=== PATIENT | female | born 1995 | race Caucasian/White ===

== ENCOUNTER → 2016-11-20 | Outpatient (CLI) | payer OTHER ==
--- NOTE | 2016-11-20 16:02 | REP ---
ULTRASOUND LEFT BREAST: CLINICAL HISTORY: Palpable abnormality left breast outer aspect, family history maternal aunt and grandmother. Real-time sonographic evaluation of the left breast is performed laterally in the region of the reported palpable abnormality. There is dense fibroglandular tissue at this location. No cystic or solid mass is seen. IMPRESSION: ACR 2 benign. Dense fibroglandular tissue, lateral left breast in the region of the reported palpable abnormality. No mass seen. Clinical correlation and followup is recommended. Signed by Norm Reeves MD 11/20/2016 05:00 P
== END ==
LOC: M RAD 14:52
PROVIDERS: ATTEND Family Medicine
DX: N63 Unspecified lump in breast (principal)

== ENCOUNTER → 2017-05-02 | Outpatient (REF) | payer OTHER ==
[2017-05-02 21:17] LABS: MEAN CORPUSCULAR HEMOGLOBIN 25.8 pg (27.0-33.0); MEAN CORPUSCULAR HGB CONC 32.7 g/dl (32.0-36.5); MEAN CORPUSCULAR VOLUME 79.1 fl (80.0-96.0); RED CELL DISTRIBUTION WIDTH 14.8 % (11.5-14.5); WHITE BLOOD COUNT 6.4 K/mm3 (4.0-10.0)
[2017-05-02 21:35] LABS: ALBUMIN 3.9 GM/DL (3.2-5.2); ALBUMIN/GLOBULIN RATIO 0.98 (1.00-1.93); ALKALINE PHOSPHATASE 93 U/L (45-117); ALT/SGPT 25 U/L (12-78); ANION GAP 6 MEQ/L (8-16); AST/SGOT 35 U/L (15-37); BILIRUBIN,TOTAL 0.4 MG/DL (0.2-1.0); BLOOD UREA NITROGEN 13 MG/DL (7-18); CALCIUM LEVEL 8.9 MG/DL (8.5-10.1); CARBON DIOXIDE LEVEL 29 MEQ/L (21-32); CHLORIDE LEVEL 106 MEQ/L (98-107); CHOLESTEROL LEVEL 168 MG/DL (<200); CREATININE FOR GFR 0.87 MG/DL (0.55-1.02); GLOMERULAR FILTRATION RATE > 60.0 (>60); GLUCOSE, FASTING 98 MG/DL (70-105); POTASSIUM SERUM 4.2 MEQ/L (3.5-5.1); SODIUM LEVEL 141 MEQ/L (136-145); TOTAL PROTEIN 7.9 GM/DL (6.4-8.2); TRIGLYCERIDES LEVEL 189 MG/DL (<150)
[2017-05-02 22:08] LABS: EOSINOPHILS 3 % (0-5)
== END ==
LOC: M SFHCLERA 07:12
PROVIDERS: ATTEND Family Medicine
DX: E66.9 Obesity, unspecified (principal); Z68.38 Body mass index [BMI] 38.0-38.9, adult; R03.0 Elevated blood-pressure reading, without diagnosis of hypertension

== ENCOUNTER → 2017-06-09 | Outpatient (REF) | payer OTHER | LOC: M SFHCLERA 08:09 | PROVIDERS: ATTEND Family Medicine | DX: D64.9 Anemia, unspecified (principal); Z53.8 Procedure and treatment not carried out for other reasons ==

== ENCOUNTER → 2017-06-10 | Outpatient (CLI) | payer OTHER ==
--- NOTE | 2017-06-11 02:53 | REP ---
Clinical: Bilateral hip pain with limited range of motion. Technique: AP and frog lateral views of the right and left hip. Findings: The bilateral hips are symmetric and relatively normal in appearance. The joint spaces are normal. No overt arthritic degenerative changes are noted. No acute fracture or dislocation. Surrounding soft tissues are unremarkable. No periarticular calcifications. No obvious congenital abnormality. Impression: Normal, age-appropriate and symmetric bilateral hip radiographs. Signed by David Floyd MD 06/11/2017 02:44 A
== END ==
LOC: M LRY 15:07
PROVIDERS: ATTEND Family Medicine
DX: D64.9 Anemia, unspecified (principal)

== ENCOUNTER → 2017-06-10 | Outpatient (REF) | payer OTHER | LOC: M SFHCLERA 15:03 | PROVIDERS: ATTEND Family Medicine | DX: D64.9 Anemia, unspecified (principal) ==

== ENCOUNTER → 2017-07-30 | Outpatient (REF) | payer OTHER ==
[2017-07-30 17:32] LABS: PERCENT SATURATION 9.1 % (13.2-45.0)
[2017-07-30 17:36] LABS: FOLATE 4.7 NG/ML (>5.4)
== END ==
LOC: M SFHCLERA 10:42
PROVIDERS: ATTEND Family Medicine
DX: Z01.818 Encounter for other preprocedural examination (principal)

== ENCOUNTER → 2017-08-18 | Outpatient (REF) | payer OTHER | LOC: M SFHCLERA 13:30 | PROVIDERS: ATTEND Family Medicine | DX: R30.0 Dysuria (principal) ==

== ENCOUNTER → 2017-09-26 | Outpatient (CLI) | payer OTHER ==
[2017-09-26 21:39] LABS: BASO % 0.4 % (0.0-1.0); EOS % 0.6 % (0.0-3.0); HEMATOCRIT 41.2 % (36.0-47.0); HEMOGLOBIN 13.8 g/dl (12.0-16.0); IMMATURE GRANULOCYTE % 0.1 % (0-0); LYMPH # 2.4 10^3/uL (1.5-6.5); LYMPH % 34.5 % (24.0-44.0); MEAN CORPUSCULAR HEMOGLOBIN 27.5 pg (27.0-33.0); MEAN CORPUSCULAR HGB CONC 33.5 g/dl (32.0-36.5); MEAN CORPUSCULAR VOLUME 82.2 fl (80.0-96.0); MONO # 0.5 10^3/uL (0.0-0.8); MONO % 7.8 % (0.0-5.0); NEUTROPHILS # 3.9 10^3/uL (1.8-7.7); NEUTROPHILS % 56.6 % (36.0-66.0); PLATELET COUNT, AUTOMATED 213 10^3/uL (150-450); RED BLOOD COUNT 5.01 10^6/uL (4.00-5.40); RED CELL DISTRIBUTION WIDTH 14.6 % (11.5-14.5)
[2017-09-26 21:42] LABS: HEMATOCRIT 41.2 % (36.0-47.0)
[2017-09-26 21:46] LABS: ALBUMIN 3.7 GM/DL (3.2-5.2); ALBUMIN/GLOBULIN RATIO 0.95 (1.00-1.93); ALKALINE PHOSPHATASE 98 U/L (45-117); ALT/SGPT 26 U/L (12-78); ANION GAP 12 MEQ/L (8-16); AST/SGOT 34 U/L (7-37); BILIRUBIN,TOTAL 0.5 MG/DL (0.2-1.0); BLOOD UREA NITROGEN 7 MG/DL (7-18); CALCIUM LEVEL 9.2 MG/DL (8.5-10.1); CARBON DIOXIDE LEVEL 23 MEQ/L (21-32); CHLORIDE LEVEL 105 MEQ/L (98-107); CREATININE FOR GFR 0.77 MG/DL (0.55-1.02); FERRITIN 23 NG/ML (8-252); GLOMERULAR FILTRATION RATE > 60.0 (>60); GLUCOSE, FASTING 78 MG/DL (70-100); IRON (FE) 42 UG/DL (50-170); MAGNESIUM LEVEL 2.2 MG/DL (1.8-2.4); PERCENT SATURATION 14.6 % (13.2-45.0); PHOSPHORUS LEVEL 3.4 MG/DL (2.5-4.9); POTASSIUM SERUM 3.6 MEQ/L (3.5-5.1); SODIUM LEVEL 140 MEQ/L (136-145); TOTAL IRON BINDING CAPACITY 287 UG/DL (250-450); TOTAL PROTEIN 7.6 GM/DL (6.4-8.2)
[2017-09-26 21:53] LABS: ESTIMATED AVERAGE GLUCOSE 88 MG/DL (60-110); HEMOGLOBIN A1c 4.7 %; TOTAL 25(OH) VITAMIN D 31.7 NG/ML (30.0-100.0); VITAMIN B12 LEVEL 942 PG/ML (247-911)
[2017-09-30 11:22] LABS: PRETREATED FOLATE FOR RBCFOL 9.2 NG/ML; RBC FOLATE 468.9 NG/ML (280-791)
== END ==
LOC: M LRY 15:04
DX: K91.2 Postsurgical malabsorption, not elsewhere classified (principal); Z98.84 Bariatric surgery status
CPT/HCPCS: 83550